=== PATIENT | female | born 1965 | race Caucasian/White ===

== ENCOUNTER 2016-08-19 10:01 | Emergency (ER) | payer OTHER ==
[2016-08-19 10:50] LABS: COLOR PALE YELLOW; LEUKOCYTE ESTERASE,URINE NEGATIVE (NEGATIVE); NITRITE,URINE NEGATIVE (NEGATIVE)
--- NOTE | 2016-08-19 10:51 | EDPHY ---
H & P Stated Complaint: l sided pelvic pain Time Seen by Provider: 08/19/16 10:35 HPI/ROS: HPI: 51-year-old female presents to emergency department with chief concern 7/ 10 left-sided pelvic discomfort that onset 2 days ago associated with left low back pain. Denies fever, chills, URI symptoms, shortness of breath, chest pain , abdominal pain, nausea, vomiting, diarrhea, urinary symptoms, flank pain, unusual vaginal discharge or bleeding, vulvovaginal lesions. Has a history of uterine fibroids. Is a patient at [facility]. Last p.o. 0 800. No history of constipation. Has bowel movements daily. ROS:10 point review of systems is negative other than as stated in HPI Source: Patient Exam Limitations: No limitations - Personal History LMP (Females 10-55): Irregular Current Tetanus/Diphtheria Vaccine: Yes - Medical/Surgical History Hx Asthma: No Hx Chronic Respiratory Disease: No Hx Diabetes: No Hx Cardiac Disease: No Hx Renal Disease: No Hx Cirrhosis: No Hx Alcoholism: No Hx HIV/AIDS: No Hx Splenectomy or Spleen Trauma: No Other PMH: appy/uterine fibroids - Family History Significant Family History: No pertinent family hx - Social History Smoking Status: Never smoked Alcohol Use: Rarely Drug Use: None Additional Social History: - Physical Exam Exam: Vital signs stable, reviewed by me General: Awake, alert, calm, cooperative. No acute distress. Head: Normalocephalic. Atraumatic. EENT: PERRLA. EOMI. No pallor or injection. Anicteric. No nystagmus. No injection. TMs intact bilaterally with normal landmarks. No rhinnorhea, nasal passages clear. Oropharynx without redness, exudates, or lesions. Tonsils 2+ bilaterally, no exudates. Neck: Supple, nontender. No lymphadenopathy. Full range of motion. No meningismus. Respiratory: Breathing unlabored. Breath sounds equal bilaterally and clear to auscultation. No adventitious sounds. CV: Chest nontender, atraumatic. Heart rate regular. No murmur, distal pulses 2+ bilaterally. Brisk cap refill all extremities. GI: Abdomen soft, nontender. Left lower adnexal pain. No rebound. No guarding. Bowel sounds normoactive and positive x4 quadrants. : No suprapubic tenderness. No CVA or flank tenderness. Neuro: Alert. Oriented x 3. Speech clear. Nonfocal cranial nerves throughout. Sensation intact all extremities. Skin: Skin warm, dry, intact. No rashes, abrasions, or lacerations. Skin turgor normal. Extremities: Full range of motion in all 4 extremities. Strength 5+ all extremities. Constitutional: Initial Vital Signs Temperature (C) 36.6 C 08/19/16 10:07 Heart Rate 69 08/19/16 10:07 Respiratory Rate 08/19/16 10:07 Blood Pressure 130/65 H 08/19/16 10:07 O2 Sat (%) 96 08/19/16 10:07 O2 Delivery Mode Room Air Allergies/Adverse Reactions: No Known Allergies Allergy (Unverified 08/19/16 10:07) Home Medications: Medication Instructions Recorded Ambien 08/19/16 Hydrocodone/APAP 5/325 [Howe 1 - 2 tab PO HS PRN #10 tab 08/19/16 5/325 (*)] Medical Decision Making - Diagnostics Imaging: Ultrasound Pelvis Complete (Transabdominal and Endovaginal) History: Left-sided pelvic pain x2 days, postmenopausal, history of fibroids. LMP: October 2015 Technique: Transabdominal and endovaginal ultrasound images were obtained. Endovaginal images obtained for better evaluation of the uterine myometrium and adnexa. Duplex doppler is used to evaluate the ovarian bloodflow. Findings: The uterus is normal in size, but distorted by multiple fibroids the largest of which are in the uterine body measuring 3.9 cm anteriorly and 4 cm posteriorly. There Is no intrauterine fluid. The uterus measures 8 x 6 x 3.5 cm. The endometrial is poorly visualized due to distortion from the fibroids, however it measures 0.8 cm in maximum thickness. There is a trace of fluid in the cervix as well as in the cul-de-sac. The ovaries are normal in size for a postmenopausal woman measuring 2.9 x 1.3 x 2.5 cm on the right and 1.7 x 0.7 x 2.1 cm on the left.. . No adnexal masses. Color and pulsed duplex doppler flow is identified in both ovaries . Resistive index = 0.65 on the right and 0.51 on the left. Impression:1. Multiple uterine fibroids. 2. No source for left pelvic pain identified. Results discussed with Sanjuana Zavaleta. Dictated By: Lane Vergara MD ED Course/Re-evaluation: 1100: 51-year-old female presents to emergency department with left-sided pelvic pain. Pain is 7/10 and onset 2 days ago. Has been constant. Vitals stable. No fever, chills, abdominal pain, nausea or vomiting. Has a history of fibroids. Pelvic complete ultrasound pending. CBC unremarkable. Basic metabolic panel unremarkable. Urinalysis negative. Declines pain medication. 1355: Vitals remained stable. Patient remains afebrile. Ultrasound consistent with multiple uterine fibroids. Offered CT abdomen pelvis for further definitive diagnosis and patient declines. Will have her follow up OB and primary care. She is stable for discharge. Differential Diagnosis: Differential diagnosis includes but is not limited to and in no particular order UTI, leiomyoma, ovarian cyst, ovarian torsion, constipation, flatus, bowel obstruction, ischemia - Data Points Laboratory Results: Laboratory Results 08/19/16 10:35 08/19/16 10:35 08/19/16 10:35 WBC 6.71 10^3/uL (3.80-9.50) RBC 4.65 10^6/uL (4.18-5.33) Hgb 13.7 g/dL (12.6-16.3) Hct 40.3 % (38.0-47.0) MCV 86.7 fL (81.5-99.8) MCH 29.5 pg (27.9-34.1) MCHC 34.0 g/dL (32.4-36.7) RDW 12.8 % (11.5-15.2) Plt Count 220 10^3/uL (150-400) MPV 10.0 fL (8.7-11.7) Neut % (Auto) 49.3 % (39.3-74.2) Lymph % (Auto) 38.9 % (15.0-45.0) [place] % (Auto) 8.0 % (4.5-13.0) Eos % (Auto) 2.5 % (0.6-7.6) Baso % (Auto) 1.0 % (0.3-1.7) Nucleat RBC Rel Count 0.0 % (0.0-0.2) Absolute Neuts (auto) 3.30 10^3/uL (1.70-6.50) Absolute Lymphs (auto) 2.61 10^3/uL (1.00-3.00) Absolute Monos (auto) 0.54 10^3/uL (0.30-0.80) Absolute Eos (auto) 0.17 10^3/uL (0.03-0.40) Absolute Basos (auto) 0.07 10^3/uL (0.02-0.10) Absolute Nucleated RBC 0.00 10^3/uL (0-0.01) Immature Gran % 0.3 % (0.0-1.1) Immature Gran # 0.02 10^3/uL (0.00-0.10) Sodium 141 mEq/L (134-144) Potassium 4.1 mEq/L (3.5-5.2) Chloride 105 mEq/L (97-110) Carbon Dioxide 24 mEq/l (22-31) Anion Gap 12 mEq/L (8-16) BUN 19 mg/dL (7-23) Creatinine 0.8 mg/dL (0.6-1.0) Estimated GFR > 60 Glucose 88 mg/dL (70-100) Calcium 9.0 mg/dL (8.5-10.4) Urine Color PALE YELLOW Urine Appearance CLEAR Urine pH 6.0 (5.0-7.5) Ur Specific [place] 1.003 (1.002-1.030) Urine Protein NEGATIVE (NEGATIVE) Urine Ketones NEGATIVE (NEGATIVE) Urine Blood NEGATIVE (NEGATIVE) Urine Nitrate NEGATIVE (NEGATIVE) Urine Bilirubin NEGATIVE (NEGATIVE) Urine Urobilinogen NEGATIVE EU (0.2-1.0) Ur Leukocyte Esterase NEGATIVE (NEGATIVE) Urine Glucose NEGATIVE (NEGATIVE) Urine Test NEGATIVE Departure - Departure Disposition: Home, Routine, Self-Care Clinical Impression: Pelvic pain Uterine fibroid Qualifiers: Uterine leiomyoma location: unspecified location Qualifier Code: (D25.9) Leiomyoma of uterus, unspecified Condition: Good Instructions: Pelvic Pain in Women (ED), Uterine Fibroids (ED) Additional Instructions: Plan: Please follow up with primary care this week for recheck without fail--When you call to schedule appointment, please let the office know you are an "ER follow up" appointment" Please follow-up with your bell neck hammerer at [facility] Sunday or Sunday for recheck without fail--When you call to schedule appointment, please let the office know you are an "ER follow up" appointment" You may use 600 mg of ibuprofen every 6 hours for fever, inflammation, or pain. Always take ibuprofen with food and stay well hydrated while taking. Do not exceed the maximum allowable dose in a 24 hour period which is 2400 mg. For severe pain at bedtime you may use 1-2 Howe as needed--Never drink or drive while taking this medication. This medication impairs decision making capacity so do not work or sign important documents while taking. This medication its constipating so drink plenty of fluids and consider an over-the- counter stool softener such as docusate sodium (Colace) while taking this medication. This medication has addictive properties. You should use the least amount for the shortest amount of time. [facility] ED and Urgent [facility] do not refill narcotic pain medication prescriptions. This is a hospital policy. You will need to follow up as indicated for recheck for further narcotic refills. Return for worsening symptoms Referrals: IN STATE,. [Unknown] - As per Instructions Prescriptions: Hydrocodone/APAP 5/325 [Howe 5/325 (*)] 1 - 2 tab PO HS PRN #10 tab PRN Reason: Pain, Moderate
[2016-08-19 10:55] LABS: % IMMATURE GRANULYOCYTES 0.3 % (0.0-1.1); ABSOLUTE IMMATURE GRANULOCYTES 0.02 10^3/uL (0.00-0.10); ADD DIFF? NO; ADD MORPH? NO; ADD SCAN? NO; ATYPICAL LYMPHOCYTE FLAG 20 (0-99); FRAGMENT RBC FLAG 0 (0-99); HEMATOCRIT 40.3 % (38.0-47.0); HEMOGLOBIN 13.7 g/dL (12.6-16.3); LEFT SHIFT FLG 0 (0-99); LIPEMIA HEMOLYSIS FLAG 90 (0-99); MEAN CELL HEMOGLOBIN 29.5 pg (27.9-34.1); MEAN CELL VOLUME 86.7 fL (81.5-99.8); PLATELET CLUMPS FLAG 0 (0-99); PLATELET COUNT 220 10^3/uL (150-400); RED BLOOD CELL COUNT 4.65 10^6/uL (4.18-5.33); RED CELL DISTRIBUTION WIDTH 12.8 % (11.5-15.2)
[2016-08-19 11:08] LABS: ANION GAP 12 mEq/L (8-16); CARBON DIOXIDE 24 mEq/l (22-31); CHLORIDE 105 mEq/L (97-110); CREATININE 0.8 mg/dL (0.6-1.0); GLOMERULAR FILTRATION RATE > 60; GLUCOSE 88 mg/dL (70-100); POTASSIUM 4.1 mEq/L (3.5-5.2); SODIUM 141 mEq/L (134-144)
[2016-08-19 13:01] VITALS: TEMP 98.1
--- NOTE | 2016-08-19 13:54 | US ---
Ultrasound Pelvis Complete (Transabdominal and Endovaginal) History: Left-sided pelvic pain x2 days, postmenopausal, history of fibroids. LMP: October 2015 Technique: Transabdominal and endovaginal ultrasound images were obtained. Endovaginal images obtaine d for better evaluation of the uterine myometrium and adnexa. Duplex doppler is used to evaluate the ovarian bloodflow. Findings: The uterus is normal in size, but distorted by multiple fibroids the largest of which are in the uter ine body measuring 3.9 cm anteriorly and 4 cm posteriorly. There Is no intrauterine fluid. The uterus measures 8 x 6 x 3.5 cm. The endometrial is poorly visualized due to distortion from the fibroids, h owever it measures 0.8 cm in maximum thickness. There is a trace of fluid in the cervix as well as i n the cul-de-sac. The ovaries are normal in size for a postmenopausal woman measuring 2.9 x 1.3 x 2.5 cm on the right and 1.7 x 0.7 x 2.1 cm on the left.. . No adnexal masses. Color and pulsed duplex d oppler flow is identified in both ovaries . Resistive index = 0.65 on the right and 0.51 on the left. Impression:1. Multiple uterine fibroids. 2. No source for left pelvic pain identified. Results discussed with Sanjuana Zavaleta.
[2016-08-19 14:27] VITALS: BP 126/86; PULSE 68; RESP 18; O2SAT 96
== END 2016-08-19 14:27 | disposition home or self-care (01) ==
DX: D25.9 Leiomyoma of uterus, unspecified (principal)

== ENCOUNTER → 2016-11-01 | Outpatient (CLI) | payer OTHER | LOC: BMCIMAGING 16:24 | PROVIDERS: ATTEND Nurse Practitioner Adult Health | DX: R07.89 Other chest pain (principal) ==

== ENCOUNTER → 2017-02-21 | Outpatient (CLI) | payer OTHER | LOC: FIMAGING 08:56 | PROVIDERS: ATTEND Obstetrics & Gynecology | DX: Z12.31 Encounter for screening mammogram for malignant neoplasm of breast (principal); Z80.3 Family history of malignant neoplasm of breast | CPT/HCPCS: G0202 ==

== ENCOUNTER → 2017-05-08 | Emergency (ER) | payer OTHER ==
[2017-05-08 13:25] VITALS: BP 129/80; PULSE 74; RESP 10; TEMP 97.9; O2SAT 98
--- NOTE | 2017-05-08 13:28 | EDPHY ---
H & P Time Seen by Provider: 05/08/17 13:24 HPI/ROS: CHIEF COMPLAINT: Allergic reaction HISTORY OF PRESENT ILLNESS: Patient is a 52-year-old female who is brought over from the MRI suite. Soon after receiving gadolinium she felt itching in her throat and had a dry cough. She did not have shortness of breath or any swelling. No wheezing. No fever. No vomiting. No chest pain. The patient was brought over to be evaluated for allergic reaction REVIEW OF SYSTEMS: Constitutional: denies: chills, fever, recent illness, recent injury EENTM: See HPI, denies: blurred vision, double vision, nose congestion Respiratory: denies: cough, shortness of breath Cardiac: denies: chest pain, irregular heart rate, lightheadedness, palpitations Gastrointestinal/Abdominal: denies: abdominal pain, diarrhea, nausea, vomiting, blood streaked stools Genitourinary: denies: dysuria, frequency, hematuria, pain Musculoskeletal: denies: joint pain, muscle pain Skin: denies: lesions, rash, jaundice, bruising Neurological: denies: headache, numbness, paresthesia, tingling, dizziness, weakness Hematologic/Lymphatic: denies: blood clots, easy bleeding, easy bruising Immunologic/allergic: denies: HIV/AIDS, transplant EXAM: GENERAL: Well-appearing, well-nourished and in no acute distress. HEAD: Atraumatic, normocephalic. EYES: Pupils equal round and reactive to light, extraocular movements intact, sclera anicteric, conjunctiva are normal. ENT: TMs normal, nares patent, oropharynx clear without exudates. Moist mucous membranes. NECK: Normal range of motion, supple without lymphadenopathy or JVD. LUNGS: Breath sounds clear to auscultation bilaterally and equal. No wheezes rales or rhonchi. HEART: Regular rate and rhythm without murmurs, rubs or gallops. ABDOMEN: Soft, nontender, normoactive bowel sounds. No guarding, no rebound. No masses appreciated. BACK: No CVA tenderness, no spinal tenderness, step-offs or deformities EXTREMITIES: Normal range of motion, no pitting or edema. No clubbing or cyanosis. NEUROLOGICAL: Cranial nerves II through XII grossly intact. Normal speech, normal gait. 5/5 strength, normal movement in all extremities, normal sensation PSYCH: Normal mood, normal affect. SKIN: Warm, dry, normal turgor, no visible rashes or lesions. Source: Patient Exam Limitations: No limitations - Medical/Surgical History Hx Asthma: No Hx Chronic Respiratory Disease: No Hx Diabetes: No Hx Cardiac Disease: No Hx Renal Disease: No Hx Cirrhosis: No Hx Alcoholism: No Hx HIV/AIDS: No Hx Splenectomy or Spleen Trauma: No Other PMH: appy/uterine fibroids - Family History Significant Family History: No pertinent family hx - Social History Smoking Status: Never smoked Alcohol Use: Sober Drug Use: None Constitutional: Initial Vital Signs Temperature (C) 36.6 C 05/08/17 13:23 Heart Rate 74 05/08/17 13:23 Respiratory Rate 10 L 05/08/17 13:23 Blood Pressure 129/80 H 05/08/17 13:23 O2 Sat (%) 98 05/08/17 13:23 O2 Delivery Mode Room Air Allergies/Adverse Reactions: No Known Allergies Allergy (Verified 05/08/17 13:26) Home Medications: Medication Instructions Recorded Ambien 08/19/16 Hydrocodone/APAP 5/325 [[place] 1 - 2 tab PO HS PRN #10 tab 08/19/16 5/325 (*)] Medical Decision Making ED Course/Re-evaluation: The patient has a normal exam. No swelling. Her tickling in her throat has resolved. No coughing or shortness of breath or wheezing. I am unsure whether not this represents an allergic reaction. I recommended that next time she received gadolinium she take Benadryl 1st. She understands and agrees with this plan. We will observe The patient remains asymptomatic. She would like to finish her MRI an MRI is willing to do so. We will have her go back there. Differential Diagnosis: Partial list of the Differential diagnosis considered include but were not limited to; allergic reaction, anxiety, upper respiratory tract infection and although unlikely based on the history and physical exam, I also considered bronchitis, pneumonia, pharyngeal infection, CVA . I discussed these differential diagnoses and the plan with the patient as well as the usual and expected course. The patient understands that the diagnosis is provisional and that in medicine we are not always correct and that further workup is often warranted. Usual and customary warnings were given. All of the patient's questions were answered. The patient was instructed to return to the emergency department should the symptoms at all worsen or return, otherwise to followup with the physician as we discussed. Departure - Departure Disposition: Home, Routine, Self-Care Clinical Impression: Anxiety Medication reaction Qualifiers: Encounter type: initial encounter Qualified Code(s): T88.7XXA - Unspecified adverse effect of drug or medicament, initial encounter Condition: Fair Instructions: Magnetic Resonance Imaging (ED) Referrals: Elizabeth Salas DO [Non Staff and Non MD] - As per Instructions
== END | disposition home or self-care (01) ==
LOC: CED 13:21
DX: F41.9 Anxiety disorder, unspecified (principal); T50.8X5A Adverse effect of diagnostic agents, initial encounter

== ENCOUNTER 2017-08-01 13:12 | Emergency (ER) | payer OTHER ==
[2017-08-01 13:28] VITALS: TEMP 97.5
--- NOTE | 2017-08-01 13:39 | CPEKG ---
Heart Rate: 56 RR Interval: 1071 P-R Interval: 188 QRSD Interval: 84 QT Interval: 420 QTC Interval: 406 P Talmo: 66 QRS Talmo: 51 T Wave Talmo: 31 EKG Severity - BORDERLINE ECG - EKG Impression: SINUS RHYTHM EKG Impression: PROBABLE LEFT ATRIAL ABNORMALITY Electronically Signed By: Lonnie Saldana 01-Aug-2017 16:15:47
[2017-08-01 14:30] LABS: PLATELET COUNT 203 10^3/uL (150-400)
--- NOTE | 2017-08-01 14:31 | EDPHY ---
H & P Time Seen by Provider: 08/01/17 14:30 HPI/ROS: Chief complaint. Chest pain HPI. 52-year-old female with left anterior chest discomfort for 4 days. It started on Sunday. It has been continuous. She describes as left anterior chest burning. No radiation. No change with breathing, exertion, position or movement. She went to the gym on Sunday without worsening symptoms. No fever cough. No unusual leg pain or swelling. She has had recent travel last week to [facility]. Has had similar symptoms previously attributed distress ROS Constitutional. no fever/chills, no weakness Eyes. no problems with vision ENT. no sore throat, no nasal drainage Cardiovascular. Anterior chest pain Respiratory. no shortness of breath, no cough Abdominal. no abdominal pain, no nausea/vomiting, no diarrhea . no problems urinating MS. no calf pain/swelling, no neck/back pain, no joint pain Skin. no rash Lymph. no swollen glands Neuro. no headache, no dizziness, no difficulty walking or with speech Past Medical/Surgical History: MS, appendectomy No family history of early coronary artery disease Social History: , nonsmoker, no alcohol Smoking Status: Never smoked Physical Exam: General Appearance: Alert well-developed male mild distress vital signs are stable Eyes: Pupils equal and round no pallor or injection. ENT, Mouth: Mucous membranes are moist. Respiratory: There are no retractions, lungs are clear to auscultation. Cardiovascular: Regular rate and rhythm. Gastrointestinal: Abdomen is soft and nontender, no masses, bowel sounds normal. Neurological: Awake and alert, sensory and motor exams grossly normal. Skin: Warm and dry, no rashes. Musculoskeletal: Neck is supple nontender. Extremities symmetrical, full range of motion. Psychiatric: Patient is oriented X 3, there is no agitation. Constitutional: Initial Vital Signs Temperature (C) 36.4 C 08/01/17 13:25 Heart Rate 65 08/01/17 13:25 Respiratory Rate 18 08/01/17 13:25 Blood Pressure 137/80 H 08/01/17 13:25 O2 Sat (%) 98 08/01/17 13:25 O2 Delivery Mode Room Air Allergies/Adverse Reactions: IV contrast Allergy (Uncoded 08/01/17 13:24) Home Medications: Medication Instructions Recorded Ambien 08/19/16 Avonex 08/01/17 Medical Decision Making - Diagnostics EKG Interpretation: EKG interpreted by me shows normal sinus rhythm with normal interval and axis. QRS is normal there is no significant ST elevation or depression. No arrhythmia. The rate is 56 Imaging Results: One-view chest x-ray reviewed by me is normal. No evidence for pneumonia Procedures: IV normal saline, monitor ED Course/Re-evaluation: On re-evaluation 3:50 p.m. patient is stable. Patient and I discussed imaging lab EKG results. We discussed treatment plan including criteria for return importance of follow-up and further evaluation. She expresses understanding and agreement Differential Diagnosis: Patient has had 4 days of flea continuous chest discomfort. She has a normal workup including chest x-ray, laboratory evaluation and EKG. I considered acute coronary syndrome, pneumonia, pulmonary embolus - Data Points Laboratory Results: Laboratory Results 08/01/17 13:40 08/01/17 13:40 08/01/17 08/01/17 08/01/17 13:40 13:40 13:40 WBC 8.05 10^3/uL 10^3/uL (3.80-9.50) RBC 5.06 10^6/uL 10^6/uL (4.18-5.33) Hgb 15.2 g/dL g/dL (12.6-16.3) Hct 43.6 % % (38.0-47.0) MCV 86.2 fL fL (81.5-99.8) MCH 30.0 pg pg (27.9-34.1) MCHC 34.9 g/dL g/dL (32.4-36.7) RDW 12.9 % % (11.5-15.2) Plt Count 203 10^3/uL 10^3/uL (150-400) MPV 10.9 fL fL (8.7-11.7) Neut % (Auto) 51.3 % % (39.3-74.2) Lymph % (Auto) 39.3 % % (15.0-45.0) [place] % (Auto) 7.2 % % (4.5-13.0) Eos % (Auto) 1.2 % % (0.6-7.6) Baso % (Auto) 0.5 % % (0.3-1.7) Nucleat RBC Rel Count 0.0 % % (0.0-0.2) Absolute Neuts (auto) 4.13 10^3/uL 10^3/uL (1.70-6.50) Absolute Lymphs (auto) 3.16 10^3/uL H 10^3/uL (1.00-3.00) Absolute Monos (auto) 0.58 10^3/uL 10^3/uL (0.30-0.80) Absolute Eos (auto) 0.10 10^3/uL 10^3/uL (0.03-0.40) Absolute Basos (auto) 0.04 10^3/uL 10^3/uL (0.02-0.10) Absolute Nucleated RBC 0.00 10^3/uL 10^3/uL (0-0.01) Immature Gran % 0.5 % % (0.0-1.1) Immature Gran # 0.04 10^3/uL 10^3/uL (0.00-0.10) D-Dimer < 0.27 ug/mLFEU ug/mLFEU (0.00-0.50) Sodium 141 mEq/L mEq/L (135-145) Potassium 4.1 mEq/L mEq/L (3.5-5.2) Chloride 103 mEq/L mEq/L (97-110) Carbon Dioxide 27 mEq/l mEq/l (22-31) Anion Gap 11 mEq/L mEq/L (8-16) BUN 14 mg/dL mg/dL (7-23) Creatinine 0.7 mg/dL mg/dL (0.6-1.0) Estimated GFR > 60 Glucose 87 mg/dL mg/dL (70-100) Calcium 9.9 mg/dL mg/dL (8.5-10.4) Troponin I < 0.012 ng/mL ng/mL (0.000-0.034) Departure - Departure Disposition: Home, Routine, Self-Care Clinical Impression: Chest pain Qualifiers: Chest pain type: unspecified Qualified Code(s): R07.9 - Chest pain, unspecified Condition: Good Instructions: Chest Pain (ED) Additional Instructions: Easy activity. Tylenol 1000 mg every 4-6 hours, ibuprofen 600 mg every 6 hr for chest discomfort. Return for worsening chest discomfort and trouble breathing. Follow up with Dr. Amin in the next 1-2 days for continuing symptoms Referrals: Haider Amin MD [Primary Care Provider] - 1 day, if not improved
[2017-08-01 14:33] VITALS: BP 116/78; PULSE 60; RESP 16; O2SAT 97
== END 2017-08-01 16:09 | disposition home or self-care (01) ==
DX: R07.9 Chest pain, unspecified (principal)

== ENCOUNTER → 2017-08-31 | Outpatient (CLI) | payer OTHER ==
[~2017-08-31] MED LIST: IOPAMIDOL (ISOVUE 370) 100 ML BTL IV ONE; IOPAMIDOL (ISOVUE-300) 100 ML BTL ONE
== END ==
LOC: FIMAGING 12:29
PROVIDERS: ATTEND Internal Medicine
DX: R07.9 Chest pain, unspecified (principal); R06.02 Shortness of breath; G35 Multiple sclerosis
CPT/HCPCS: Q9967

== ENCOUNTER → 2018-02-28 | Outpatient (CLI) | payer OTHER | LOC: FIMAGING 08:26 | PROVIDERS: ATTEND Obstetrics & Gynecology | DX: Z12.31 Encounter for screening mammogram for malignant neoplasm of breast (principal); Z80.3 Family history of malignant neoplasm of breast ==